=== PATIENT | male | born 1965 | race Two or more races ===

== ENCOUNTER 2024-12-29 00:43 | Emergency (ER) | payer OTHER ==
[~2024-12-29] VITALS: Ht 175.3 cm; Wt 75.5 kg
[2024-12-29 00:52] VITALS: TEMP 98.2
[2024-12-29 02:05] LABS: APPEARANCE,URINE CLEAR (CLEAR); GLUCOSE, URINE (UA) NEGATIVE (NEGATIVE); LEUKOCYTE ESTERASE ,URINE NEGATIVE (NEGATIVE); NITRATE,URINE NEGATIVE (NEGATIVE); OCCULT BLOOD,URINE NEGATIVE (NEGATIVE); SPECIFIC GRAVITIY, URINE 1.022 (1.003-1.030)
[2024-12-29 02:15] LABS: SQUAMOUS EPITHELIAL CELL,UR Few /LPF (None Seen)
[2024-12-29 04:01] LABS: PLATELET COUNT (AUTO) 213 K/uL (150-450); RED BLOOD CELL COUNT(AUTO) 4.70 MIL/uL (4.50-5.90); RED CELL DISTRIBUTION WIDTH 14.3 % (11.5-14.5); WHITE BLOOD COUNT (AUTO) 7.3 K/uL (4.5-11.0)
[2024-12-29 04:08] LABS: CALCIUM, TOTAL 8.3 mg/dL (8.8-10.5); CREATININE 1.09 mg/dL (0.60-1.30); GLOMERULAR FILTR. RATE CALC > 60 mL/min (>60); GLUCOSE,RANDOM 99 mg/dL (70-110); SODIUM SERUM 135 mmol/L (136-145); UREA NITROGEN, BLOOD 21 mg/dL (7-18)
[2024-12-29] MEDS ORDERED: CIPR-515 PO (05:27)
[2024-12-29] MEDS ORDERED: TRAM50TA5 PO (05:27)
[2024-12-29] MEDS ORDERED: METR500 PO (05:27)
[2024-12-29] MEDS: CIPROFLOXACIN 400 MG/D5% WATER 200 ML IV ONE (05:57)
[2024-12-29] MEDS: MetroNIDAZOLE 500 MG/NACL 100 ML IV ONE (05:57)
[2024-12-29] MEDS: SODIUM CHLORIDE 0.9% 1,000 ML IV ONE (05:58)
[2024-12-29 07:30] VITALS: BP 135/79; PULSE 65; RESP 17; O2SAT 98
== END 2024-12-29 08:29 | disposition home or self-care (01) ==
LOC: EMS 04:03
DX: K57.32 Diverticulitis of large intestine without perforation or abscess without bleeding (principal); I10 Essential (primary) hypertension
CPT/HCPCS: 99285; 74176; 96365; 96361; 80048; 81001; 83690; 85025; 87040; 36415; 74018; 96368; J0744; J3490; J7030